=== PATIENT | female | born 1995 | race African-American/Black ===

== ENCOUNTER 2023-03-13 01:14 | Emergency (ER) | payer BC, MEDICAID, OTHER ==
[~2023-03-13] VITALS: Ht 149.9 cm; Wt 77.0 kg
[2023-03-13] MEDS ORDERED: MET500T PO ×3 (04:19→05:07)
[2023-03-13 05:00] LABS: Urine Bacteria FEW /hpf (None Seen); Urine Blood Negative /uL (Negative); Urine Clarity HAZY (Clear); Urine Color Yellow (Yellow); Urine Mucus FEW (None Seen); Urine Protein, UAD TRACE (Negative); Urine Specific Gravity 1.021 (1.001-1.035); Urine Urobilinogen Normal (Negative); Urine WBC 127 /hpf (0 - 5)
[2023-03-13] MEDS ORDERED: NITR-87 PO ×3 (05:03→05:07)
[2023-03-13 05:08] VITALS: BP 138/89; PULSE 79; RESP 18; TEMP 98; O2SAT 99
== END 2023-03-13 05:11 | disposition home or self-care (01) ==
LOC: ER 01:14
DX: N89.8 Other specified noninflammatory disorders of vagina (principal)
CPT/HCPCS: 81001